=== PATIENT | female | born 1945 | race Caucasian/White ===

== ENCOUNTER 2024-04-12 09:31 | Emergency (ER) | payer OTHER ==
[2024-04-12] MEDS ORDERED: ONDANSETRON 4 MG/2 ML VIAL ONE (10:16)
[2024-04-12] MEDS ORDERED: KETOROLAC 30 MG/ML INJ ONE (10:16)
[2024-04-12] MEDS ORDERED: NA CHLORIDE 0.9% 500 ML ONE (10:16)
--- NOTE | 2024-04-12 10:25 | RAD REPORT ---
EXAMINATION: US Extrem Venous W Compress Alex CLINICAL INDICATION: [facility] MAIN Pain;Swelling Bed: N TECHNIQUE: Complete bilateral duplex sonography of the BILATERAL lower extremity veins was performed. The examination included compression for vein patency, color Doppler imaging and flow augmentation in response to distal compression of the distal external iliac, common femoral, femoral, popliteal, t ibial, and great and small saphenous veins. COMPARISON: No prior exam. FINDINGS: Duplex sonography testing of the veins of the BILATERAL lower extremity was performed. Color flow sherry ging shows all veins to be compressible with [id number] color filling. Pulsatile and phasic flow is present within all lower extremity deep and superficial veins examined. IMPRESSION: There is no deep vein or superficial vein thrombosis.
--- NOTE | 2024-04-12 10:32 | RAD REPORT ---
EXAMINATION: XR Ankle Right 3 View CLINICAL INDICATION: Female, 78 years old. [facility] MAIN PAIN Bed Name: 5 TECHNIQUE: 3 view radiographs of the right ankle were obtained. COMPARISON: No prior exam. FINDINGS: No bone or joint abnormality seen. Mineralization adjacent to the tips of the lateral and m edial menisci, extending along the posterior ankle joint line, could relate to depositional arthropathy. IMPRESSION: No acute osseous abnormality. Findings as above.
--- NOTE | 2024-04-12 10:33 | RAD REPORT ---
EXAMINATION: XR Foot Right 3 View CLINICAL INDICATION: Female, 78 years old. [facility] MAIN PAIN Bed Name: 5 TECHNIQUE: 3 view radiographs of the right foot were obtained. COMPARISON: Ankle radiographs of the same day FINDINGS: No evidence of fracture or dislocation. Hallux valgus deformity with first metatarsophalang eal angle measuring 32 degrees. Moderate bunion formation. No evidence of arthropathy or other focal bone lesion. Mineralization adjacent to the tips of the lateral and medial menisci, extending a long the posterior ankle joint line, could relate to depositional arthropathy. IMPRESSION: No acute osseous abnormality. Chronic findings as above.
[2024-04-12 10:35] LABS: Absolute Lymphocytes (CBC) 0.9 K/uL (0.7-4.9); Absolute Monocytes 0.6 K/uL (0.1-1.3); Absolute Neutrophil 6.7 K/uL (1.8-8.0); Basophils % 0.2 % (0-1.3); Eosinophils % 0.3 % (0-4.4); Hematocrit 38.5 % (36.0-45.0); Hemoglobin 12.8 g/dL (12.0-15.0); Lymphocytes % 11.1 % (15.3-44.8); MCH 28.8 pg (27.0-35.0); MCHC 33.2 g/dL (32.0-36.0); MCV 86.8 fL (80-100); MPV 8.5 fL (7.6-11.3); Monocytes % 7.4 % (3.3-12.3); Nucleated Red Blood Cells % 0.1 % (0-0); Platelets 292 thou/uL (152-406); RBC Red Blood Cell Count 4.44 M/uL (3.86-4.86); Red Cell Distribution Width 13.9 % (12.1-15.2)
[2024-04-12 10:38] LABS: PT Prothrombin Time 13.2 SECONDS (9.4-12.5); Protime INR 1.18
[2024-04-12 10:51] LABS: Albumin 3.3 g/dL (3.4-5.0); Albumin/Globulin Ratio 0.8 (1.1-1.8); Bilirubin Total 0.5 mg/dL (0.2-1.0); Globulin 4.3 g/dL (2.3-3.5); Protein, Total 7.6 g/dL (6.4-8.2)
--- NOTE | 2024-04-12 11:40 | ER ---
Nurse's Notes [facility] Name: Niyah Zapien Age: 78 yrs Sex: Female : 1945 Arrival Date: 04/12/2024 Time: 09:31 Bed 5 Private MD: Diagnosis: Pain in right foot;Pain in right ankle and joints of right foot;Edema, unspecified Presentation: 04/12 09:43 Chief complaint: Patient states: Pain to R foot/ ankle that has been ongoing, but pain ss and swelling became worse beginning yesterday evening. 09:43 Coronavirus screen: Client denies travel out of the [place] in the last 14 days. Ebola ss Screen: Patient denies exposure to infectious person. Patient denies travel to an Ebola-affected area in the 21 days before illness onset. Risk Assessment: Do you want to hurt yourself or someone else? Patient reports no desire to harm self or others. Onset of symptoms was April 11, 2024. 09:43 Method Of Arrival: Wheelchair ss 09:43 Acuity: GABRIEL 3 ss 10:32 Initial Sepsis Screen: Does the patient meet any 2 criteria? No. Patient's initial jl7 sepsis screen is negative. Does the patient have a suspected source of infection? No. Patient's initial sepsis screen is negative. Triage Assessment: 10:32 General: Appears in no apparent distress. uncomfortable, Behavior is calm, cooperative, jl7 appropriate for age. Pain: Complains of pain in right foot Pain currently is 8 out of 10 on a pain scale. Neuro: Level of Consciousness is awake, alert, obeys commands, Oriented to person, place, time, situation. Cardiovascular: Patient's skin is warm and dry. Respiratory: Airway is patent Respiratory effort is even, unlabored, Respiratory pattern is regular, symmetrical. Derm: Skin is pink, warm \T\ dry. Musculoskeletal: Swelling present in right foot. Historical: - Allergies: 10:06 No Known Allergies; ss - Home Meds: 10:34 Synthroid Oral [Active]; carvedilol 6.25 mg oral tablet 2 times per day [Active]; jl7 - PMHx: 10:34 Hypertensive disorder; Hypothyroidism; Hypercholesterolemia; jl7 - PSHx: 10:35 right lumpectomy; jl7 - Immunization history:: Adult Immunizations unknown. - Infectious Disease History:: Denies. - Family history:: not pertinent. - Social history:: Smoking status: Patient denies any tobacco usage or history of. Screenin:35 [facility] ED Fall Risk Assessment (Adult) History of falling in the last 3 months, jl7 including since admission No falls in past 3 months (0 pts) Confusion or Disorientation No (0 pts) Intoxicated or Sedated No (0 pts) Impaired Gait No (0 pts) Mobility Assist Device Used No (0 pt) Altered Elimination No (0 pt) Score/Fall Risk Level 0 - 2 = Low Risk Oriented to surroundings, Maintained a safe environment. Abuse screen: Denies threats or abuse. Denies injuries from another. Nutritional screening: No deficits noted. Tuberculosis screening: No symptoms or risk factors identified. Assessment: 11:15 Reassessment: Patient appears in no apparent distress at this time. Patient and/or jl7 family updated on plan of care and expected duration. Pain level reassessed. Patient is alert, oriented x 3, equal unlabored respirations, skin warm/dry/pink. pain rated 2/10 Patient states feeling better. Patient states symptoms have improved. Vital Signs: 10:32 BP 145 / 69; Pulse 74; Resp 17; Temp 98.2; Pulse Ox 100% ; Weight 69.4 kg; Height 5 ft. jl7 4 in. ; Pain 8/10; 12:25 Pain 2/10; jl7 10:32 Body Mass Index 26.26 (69.40 kg, 162.56 cm) jl7 10:32 Pain Scale: Adult jl7 12:25 Pain Scale: Adult jl7 ED Course: 09:34 Patient arrived in ED. im 09:35 Ruy Isaac MD is Attending Physician. carey 09:57 Timmy Moreland RN is Primary Nurse. jl7 09:58 US Extremity Venous W Compression Alex In Process Unspecified. EDMS 10:06 Triage completed. ss 10:09 Arm band placed on Patient placed in an exam room, in the treatment room, on pulse ph oximetry. 10:12 Foot Right 3 View XRAY In Process Unspecified. EDMS 10:12 Ankle Right 3 View XRAY In Process Unspecified. EDMS 10:34 Initial lab(s) drawn, by me, sent to lab. Inserted saline lock: 20 gauge in left jl7 antecubital area, using aseptic technique. Blood collected. Flushed with 10 mL NS. 10:35 Patient has correct armband on for positive identification. Provided Education on: use jl7 of call rosas. 11:40 Yehuda Mario MD is Referral Physician. [facility] 12:26 No provider procedures requiring assistance completed. IV discontinued, intact, jl7 bleeding controlled, No redness/swelling at site. Pressure dressing applied. 12:27 Air stirrup applied to right ankle. jl7 Administered Medications: 10:36 Drug: NS 0.9% IV 500 ml 500 ml IV at 1 bolus once; to be given as a bolus over 30 jl7 minutes Volume: 500 ml; Route: IV; Rate: 1 bolus; Site: left antecubital; 11:15 Follow up: Response: No adverse reaction; IV Status: Completed infusion; IV Intake: jl7 500ml 10:36 Drug: Ketorolac IVP 15 mg IVP once Route: IVP; Site: left antecubital; jl7 12:25 Follow up: Pain 2/10 Adult; Response: No adverse reaction; Pain is decreased jl7 10:36 Not Given (Patient Refused): ondansetron 4 mg IVP once; over 2 minutes jl7 Medication: 10:35 VIS not applicable for this client. jl7 Intake: 11:15 IV: 500ml; Total: 500ml. jl7 Outcome: 11:40 Discharge ordered by . [facility] 12:26 Discharged to home ambulatory, jl7 12:26 Condition: stable 12:26 Discharge instructions given to patient, family, Instructed on discharge instructions, follow up and referral plans. medication usage, Demonstrated understanding of instructions, follow-up care, medications, Prescriptions given X 3, 12:26 Patient left the ED. jl7 Signatures: Dispatcher [employer] EDIL Ruy Isaac MD MD cha Blanchard, Shelby, RN RN Emma Mckeon RN RN Timmy Mccormack RN RN jl7 Margi Fernandez
--- NOTE | 2024-04-12 11:40 | EDPHYS ---
Physician Documentation [facility] Name: Niyah Zapien Age: 78 yrs Sex: Female : 1945 Arrival Date: 04/12/2024 Time: 09:31 Bed 5 Private MD: ED Physician Ruy Isaac HPI: 04/12 10:20 This 78 yrs old Female presents to ER via Wheelchair with complaints of Leg carey Pain - right, Leg Swelling - right. 10:20 The patient presents with decreased range of motion, pain, that is acute. The carey complaints affect the lateral aspect of right calf, right ankle, lateral aspect of right foot, right calf, right Achilles, medial aspect of right calf, right lujan, anterior aspect of right ankle and dorsum of right foot. Context: resulted from an unknown cause, the patient can partially bear weight, the patient is able to ambulate, with moderate difficulty. Modifying factors: The symptoms are alleviated by elevating leg, remaining still, the symptoms are aggravated by movement, weight bearing. Associated signs and symptoms: The patient has no apparent associated signs or symptoms. Severity of symptoms: At their worst the symptoms were moderate, in the emergency department the symptoms are unchanged. The patient has not experienced similar symptoms in the past. Historical: - Allergies: 10:06 No Known Allergies; ss - Home Meds: 10:34 Synthroid Oral [Active]; carvedilol 6.25 mg oral tablet 2 times per day [Active]; jl7 - PMHx: 10:34 Hypertensive disorder; Hypothyroidism; Hypercholesterolemia; jl7 - PSHx: 10:35 right lumpectomy; jl7 - Immunization history:: Adult Immunizations unknown. - Infectious Disease History:: Denies. - Family history:: not pertinent. - Social history:: Smoking status: Patient denies any tobacco usage or history of. ROS: 10:20 Constitutional: Negative for fever, chills, and weight loss, Eyes: Negative for injury, carey pain, redness, and discharge, ENT: Negative for injury, pain, and discharge, Neck: Negative for injury, pain, and swelling, Cardiovascular: Negative for chest pain, palpitations, and edema, Respiratory: Negative for shortness of breath, cough, wheezing, and pleuritic chest pain, Abdomen/GI: Negative for abdominal pain, nausea, vomiting, diarrhea, and constipation, Back: Negative for injury and pain, : Negative for injury, bleeding, discharge, and swelling, Skin: Negative for injury, rash, and discoloration, Neuro: Negative for headache, weakness, numbness, tingling, and seizure, Psych: Negative for depression, anxiety, suicide ideation, homicidal ideation, and hallucinations, Allergy/Immunology: Negative for hives, rash, and allergies, Endocrine: Negative for neck swelling, polydipsia, polyuria, polyphagia, and marked weight changes, Hematologic/Lymphatic: Negative for swollen nodes, abnormal bleeding, and unusual bruising, 10:20 MS/extremity: Positive for decreased range of motion, erythema, pain, tenderness, of the right leg, Exam: 10:20 Constitutional: This is a well developed, well nourished patient who is awake, alert, carey and in no acute distress. Head/Face: Normocephalic, atraumatic. Eyes: Pupils equal round and reactive to light, extra-ocular motions intact. Lids and lashes normal. Conjunctiva and sclera are non-icteric and not injected. Cornea within normal limits. Periorbital areas with no swelling, redness, or edema. ENT: Nares patent. No nasal discharge, no septal abnormalities noted. Tympanic membranes are normal and external auditory canals are clear. Oropharynx with no redness, swelling, or masses, exudates, or evidence of obstruction, uvula midline. Mucous membranes moist. Neck: Trachea midline, no thyromegaly or masses palpated, and no cervical lymphadenopathy. Supple, full range of motion without nuchal rigidity, or vertebral point tenderness. No Meningismus. Chest/axilla: Normal chest wall appearance and motion. Nontender with no deformity. No lesions are appreciated. Cardiovascular: Regular rate and rhythm with a normal S1 and S2. No gallops, murmurs, or rubs. Normal PMI, no JVD. No pulse deficits. Respiratory: Lungs have equal breath sounds bilaterally, clear to auscultation and percussion. No rales, rhonchi or wheezes noted. No increased work of breathing, no retractions or nasal flaring. Abdomen/GI: Soft, non-tender, with normal bowel sounds. No distension or tympany. No guarding or rebound. No evidence of tenderness throughout. Back: No spinal tenderness. No costovertebral tenderness. Full range of motion. Female : Normal external genitalia. Neuro: Awake and alert, GCS 15, oriented to person, place, time, and situation. Cranial nerves II-XII grossly intact. Motor strength 5/5 in all extremities. Sensory grossly intact. Cerebellar exam normal. Normal gait. Psych: Awake, alert, with orientation to person, place and time. Behavior, mood, and affect are within normal limits. 10:20 Skin: cellulitis, that is mild, on the instep of right foot, Vital Signs: 10:32 BP 145 / 69; Pulse 74; Resp 17; Temp 98.2; Pulse Ox 100% ; Weight 69.4 kg; Height 5 ft. jl7 4 in. ; Pain 8/10; 12:25 Pain 2/10; jl7 10:32 Body Mass Index 26.26 (69.40 kg, 162.56 cm) jl7 10:32 Pain Scale: Adult jl7 12:25 Pain Scale: Adult jl7 MDM: 09:35 Medical Screening Exam initiated carey 10:22 Differential diagnosis: closed fracture, contusion, abrasion, tendonitis. Data carey reviewed: vital signs, nurses notes, lab test result(s), radiologic studies, doppler, plain films. Consideration of Admission/Observation Escalation of care including admission/observation considered. I considered the following discharge prescriptions or medication management in the emergency department Medications were administered in the Emergency Department. See MAR. Independent interpretation of the following test(s) in the Emergency Department X-Ray: My interpretation is foot x ray. Test considered but Not performed: MRI: no mri. Historians other than the Patient: Family Member: family well informed. Care significantly affected by the following chronic conditions: none. Counseling: I had a detailed discussion with the patient and/or guardian regarding the historical points, exam findings, and any diagnostic results supporting the discharge/admit diagnosis, lab results, radiology results, the need for outpatient follow up, for definitive care, an solid waste disposal manager. 04/12 09:40 Order name: CBC with Diff; Complete Time: 11:11 [facility] 04/12 09:40 Order name: Comprehensive Metabolic Panel; Complete Time: 11:11 [facility] 04/12 09:40 Order name: PT-INR; Complete Time: 11:11 carey 04/12 09:47 Order name: Uric Acid; Complete Time: 11:11 [facility] 04/12 09:40 Order name: US Extremity Venous W Compression Alex; Complete Time: 10:30 [facility] 04/12 09:47 Order name: Foot Right 3 View XRAY; Complete Time: 11:11 [facility] 04/12 09:47 Order name: Ankle Right 3 View XRAY; Complete Time: 11:11 carey 04/12 09:40 Order name: IV - Large Bore; Complete Time: 10:37 [facility] 04/12 11:40 Order name: Walking boot; Complete Time: 12:24 carey Administered Medications: 10:36 Drug: NS 0.9% IV 500 ml 500 ml IV at 1 bolus once; to be given as a bolus over 30 jl7 minutes Volume: 500 ml; Route: IV; Rate: 1 bolus; Site: left antecubital; 11:15 Follow up: Response: No adverse reaction; IV Status: Completed infusion; IV Intake: jl7 500ml 10:36 Drug: Ketorolac IVP 15 mg IVP once Route: IVP; Site: left antecubital; jl7 12:25 Follow up: Pain 2/10 Adult; Response: No adverse reaction; Pain is decreased jl7 10:36 Not Given (Patient Refused): ondansetron 4 mg IVP once; over 2 minutes jl7 Disposition Summary: 04/12/24 11:40 Discharge Ordered Notes: Location: Home carey Problem: new carey Symptoms: have improved carey Condition: Stable carey Diagnosis - Pain in right foot carey - Pain in right ankle and joints of right foot carey - Edema, unspecified carey Followup: carey - With: Private Physician - When: 2 - 3 days - Reason: Recheck today's complaints, Continuance of care, Re-evaluation by your physician Followup: carey - With: Yehuda Mario MD - When: 2 - 3 days - Reason: Recheck today's complaints, Re-evaluation by your physician Discharge Instructions: - Discharge Summary Sheet carey - Joint Pain carey - Arthritis carey - Edema carey - Musculoskeletal Pain carey - How to Use Cold Therapy, [id number] carey - Edema, [id number] carey - How to Use Cold Therapy carey - Joint Pain, [id number] carey - Foot Pain carey Forms: - Medication Reconciliation Form carey - Antibiotic Education carey - Prescription Opioid Use carey - Patient Portal Instructions carey - Leadership Thank You Letter [facility] Prescriptions: - acetaminophen-codeine 300-30 mg Oral tablet - take 1 tablet ORAL route every 4 to 6 hours; 20 tablet; Refills: 0, Product carey Selection Permitted - diclofenac sodium 50 mg Oral tablet, delayed release (enteric coated) - take 1 tablet ORAL route 3 times per day; 30 tablet; Refills: 0, Product carey Selection Permitted - Medrol (Ming) 4 mg Oral Tablets, Dose Pack - take 1 tablet ORAL route as directed - follow package instructions; 1 packet; [facility] Refills: 0, Product Selection Permitted Signatures: Dispatcher [employer] EDRuy Royal MD MD cha Blanchard, Shelby, RN RN ss Timmy Moreland RN RN jl7 Corrections: (The following items were deleted from the chart) 09:40 09:40 CBC+H.LAB.BRZ ordered. EDMS EDMS 09:40 09:40 COMPREHENSIVE METABOLIC PANEL+C.LAB.BRZ ordered. EDMS EDMS 09:40 09:40 PROTIME (+INR)+COAG.LAB.BRZ ordered. EDMS EDMS 09:40 09:40 Extrem Venous W Compression Alex+US.RAD.BRZ ordered. EDMS EDMS 09:48 09:48 URIC ACID+C.LAB.BRZ ordered. EDMS EDMS
[2024-04-12 14:19] VITALS: BP 145/69; TEMP 98.2; O2SAT 100
== END 2024-04-12 12:26 | disposition home or self-care (01) ==
LOC: ER 09:31
DX: M79.671 Pain in right foot (principal); M25.571 Pain in right ankle and joints of right foot; R60.9 Edema, unspecified; I10 Essential (primary) hypertension; E03.9 Hypothyroidism, unspecified; E78.00 Pure hypercholesterolemia, unspecified
CPT/HCPCS: 96361; 85025; 36415; 85610; 84550; 80053; 73630; 73610; 93970; 96374; 99284; J7040; J2405